=== PATIENT | male | born 1990 | race Caucasian/White ===

== ENCOUNTER 2017-07-03 23:11 | Emergency (ER) | payer SELFPAY ==
[~2017-07-03] VITALS: Ht 172.7 cm; Wt 80.3 kg
[~2017-07-03 23:11] MED LIST: ALLOPURINOL100 MG PO; ASPIR 8181 MG PO; CARVEDILOL25 M1 PO; CLOPIDOGREL75 M1 PO; CRESTOR40 M1 PO; FLUOXETINE HCL20 MG PO; GLIPIZIDE10 MG PO; LYRICA100 M1 PO; OMEPRAZOLE40 M1 PO; PRAZOSIN HYDROCH2 MG PO; RENVELA800 M1 PO; VIAGRA100 MG PO; [UNRECOGNIZED DRUG - OTHER] DE; [UNRECOGNIZED DRUG - OTHER] PO
[2017-07-03 23:23] VITALS: Ht 172.7 cm; Wt 80.3 kg
[2017-07-04 00:02] VITALS: BP 123/69
== END 2017-07-04 00:02 | disposition home or self-care (01) ==
LOC: ED 23:11
DX: S61.411A Laceration without foreign body of right hand, initial encounter (principal); X78.1XXA Intentional self-harm by knife, initial encounter; Y93.89 Activity, other specified; Y92.89 Other specified places as the place of occurrence of the external cause; Y99.8 Other external cause status
CPT/HCPCS: 90715; J2001